=== PATIENT | female | born 1980 | race American Indian/Alaskan Native ===

== ENCOUNTER 2020-07-22 15:14 | Emergency (ER) | payer OTHER ==
[~2020-07-22] VITALS: Ht 162.6 cm; Wt 113.4 kg
== END 2020-07-22 21:13 | disposition home or self-care (01) ==
LOC: ER 15:14
DX: O20.8 Other hemorrhage in early pregnancy (principal); Z3A.01 Less than 8 weeks gestation of pregnancy

== ENCOUNTER 2021-05-29 08:29 | Outpatient (CLI) | payer OTHER | END 2021-05-29 09:47 | disposition home or self-care (01) | LOC: PRENATAL 08:29 | PROVIDERS: ATTEND Obstetrics & Gynecology Maternal & Fetal Medicine | DX: O99.211 Obesity complicating pregnancy, first trimester (principal); O36.80X1 Pregnancy with inconclusive fetal viability, fetus 1; O09.521 Supervision of elderly multigravida, first trimester; Z36.89 Encounter for other specified antenatal screening; Z3A.13 13 weeks gestation of pregnancy ==

== ENCOUNTER 2021-07-29 13:03 | Outpatient (CLI) | payer OTHER | END 2021-07-29 14:20 | disposition home or self-care (01) | LOC: PRENATAL 13:03 | PROVIDERS: ATTEND Obstetrics & Gynecology Maternal & Fetal Medicine | DX: O35.0XX1 Maternal care for (suspected) central nervous system malformation in fetus, fetus 1 (principal); O35.3XX1 Maternal care for (suspected) damage to fetus from viral disease in mother, fetus 1; O98.512 Other viral diseases complicating pregnancy, second trimester; O09.522 Supervision of elderly multigravida, second trimester; O99.212 Obesity complicating pregnancy, second trimester; Z36.89 Encounter for other specified antenatal screening; Z3A.21 21 weeks gestation of pregnancy ==

== ENCOUNTER 2021-10-14 13:55 | Outpatient (CLI) | payer OTHER | END 2021-10-14 14:54 | disposition home or self-care (01) | LOC: PRENATAL 13:55 | PROVIDERS: ATTEND Obstetrics & Gynecology Maternal & Fetal Medicine | DX: O26.849 Uterine size-date discrepancy, unspecified trimester (principal); O09.529 Supervision of elderly multigravida, unspecified trimester; O99.210 Obesity complicating pregnancy, unspecified trimester; Z3A.32 32 weeks gestation of pregnancy ==

== ENCOUNTER 2021-11-28 22:44 | Inpatient (IN) | payer OTHER ==
[~2021-11-28] VITALS: Ht 162.6 cm; Wt 117.0 kg
[2021-11-28] MEDS ORDERED: MAGNESIUM200 MG (23:40)
[2021-11-28] MEDS ORDERED: CHILDREN'S ASPI81 MG (23:40)
[2021-11-28] MEDS ORDERED: PRILOSEC10 MG (23:40)
[2021-11-28] MEDS ORDERED: PRENATA CHEWAB1 EACH (23:41)
== END 2021-11-30 14:59 | disposition home or self-care (01) | DRG 807 ==
LOC: LDR 22:44 → OB/GYN 22:44
PROVIDERS: ADMIT Obstetrics & Gynecology; ATTEND Obstetrics & Gynecology
PROC: 10E0XZZ Delivery of Products of Conception, External Approach (ICD-10-PCS; principal; 2021-11-28)
DX: O80 Encounter for full-term uncomplicated delivery (principal); Z37.0 Single live birth; Z3A.39 39 weeks gestation of pregnancy; Z20.822 Contact with and (suspected) exposure to COVID-19